=== PATIENT | male | born 1995 | race African-American/Black ===

== ENCOUNTER 2024-08-10 13:00 | Inpatient (IN) | payer OTHER ==
[2024-08-10 13:10] VITALS: BMI 24.9
[2024-08-10] MEDS ORDERED: ACETAMINOPHEN INJECTION 100 ML ONE (14:17)
[2024-08-10 14:36] LABS: BASO % 0.4 % (0-2.0); EOS % 0.9 % (0-4.5); HEMATOCRIT 41.2 % (35.4-49); HEMOGLOBIN 13.9 GM/dL (11.7-16.9); LYMPH % 33.4 % (8-40); MCH 31.2 pg (25.7-33.7); MCHC 33.9 g/dl (32.0-35.9); MEAN CELL VOLUME 92.3 fl (80-96); NEUT % 54.3 % (42.8-82.8); PLATELET COUNT 218 10^3/uL (134-434); RBC 4.46 M/mm3 (4.00-5.60); RDW 14.6 % (11.9-15.9); URINE APPEARANCE CLEAR; URINE BILIRUBIN NEGATIVE (NEGATIVE); URINE COLOR YELLOW; URINE GLUCOSE (UA) NEGATIVE (NEGATIVE); URINE KETONE NEGATIVE (NEGATIVE); URINE LEUK ESTERASE NEGATIVE (NEGATIVE); URINE NITRITE NEGATIVE (NEGATIVE); URINE PROTEIN NEGATIVE (NEGATIVE); URINE UROBILINOGEN 0.2 mg/dL (0.2-1.0); WHITE BLOOD COUNT 4.8 K/mm3 (4.0-10.0)
[2024-08-10] MEDS: ACETAMINOPHEN 1000 MG/100 ML BAG IVPB ONE (14:36)
[2024-08-10 14:43] LABS: INR 1.09 (0.83-1.09); PROTHROMBIN TIME (PATIENT) 11.9 SEC (9.7-13.0)
[2024-08-10 14:46] LABS: ACTIVATED PTT 28.7 SECONDS (25.2-36.5)
[2024-08-10 15:05] LABS: POTASSIUM 4.6 mmol/L (3.5-5.1)
[2024-08-10 15:08] LABS: ALBUMIN 3.9 g/dl (3.4-5.0); BLOOD UREA NITROGEN 14.8 mg/dL (7-18); CALCIUM 9.4 mg/dL (8.5-10.1)
[2024-08-10 15:11] LABS: CREATININE 1.1 mg/dL (0.55-1.3)
[2024-08-10 15:13] LABS: TOT PROT 7.5 g/dl (6.4-8.2)
[2024-08-10 15:57] LABS: HIV INTERPRETATION NEGATIVE (NEGATIVE)
[2024-08-10] MEDS ORDERED: PIPERACILLIN/TAZOB 3.375 GM 3.375 GM/50 ML BAG IVPB ONE (17:52)
[2024-08-10] MEDS: PIPERACILLIN/TAZOB 3.375 GM 3.375 GM in DEXTROSE 5%-WATER - 50 ML IVPB ONE (17:55)
[2024-08-10] MEDS ORDERED: ACETAMINOPHEN 1000 MG/100 ML BAG IVPB PRN ×2 (18:11→20:42)
[2024-08-10] MEDS ORDERED: ONDANSETRON 4 MG/2 ML VIAL IVPUSH PRN ×2 (18:11→20:42)
[2024-08-10] MEDS ORDERED: CEFTRIAXONE 1 G/50 ML PREMIX 50 ML IVPB ONE (18:25)
[2024-08-10] MEDS ORDERED: BUPIVACAINE HCL/PF 0.25% (2.5MG/ML) 10 ML VIAL ONE (18:26)
[2024-08-10] MEDS: LACTATED RINGERS SOLUTION 1,000 ML IV SCH ×3 (18:36→22:49)
[2024-08-10] MEDS: CEFTRIAXONE 1 GM in DEXTROSE 5%-WATER - 50 ML IVPB SCH (18:36)
[2024-08-10] MEDS ORDERED: oxyCODONE HCL 5 MG TABLET PO PRN (18:40)
[2024-08-10] MEDS ORDERED: CEFTRIAXONE 1 G/50 ML PREMIX 50 ML IVPB SCH (18:50)
[2024-08-10] MEDS ORDERED: PROPOFOL 20 ML ONE (18:56)
[2024-08-10] MEDS ORDERED: ROCURONIUM BROMIDE 50 MG/5 ML SYRINGE ONE (18:56)
[2024-08-10] MEDS ORDERED: MIDAZOLAM HCL 2 MG/2 ML SINGLE DOSE VIAL ONE (18:56)
[2024-08-10] MEDS ORDERED: DEXAMETHASONE SOD PHOSPHATE 4 MG/1 ML VIAL ONE (19:19)
[2024-08-10] MEDS ORDERED: KETOROLAC TROMETHAMINE 30 MG/1 ML VIAL ONE (19:19)
[2024-08-10] MEDS ORDERED: ONDANSETRON 4 MG/2 ML VIAL ONE (19:19)
[2024-08-10] MEDS ORDERED: SUGAMMADEX SODIUM 200 MG/2 ML VIAL ONE (19:26)
[2024-08-10] MEDS: BUPIVACAINE HCL/PF 2.5 MG/ML - 30 ML VIAL IJ ONE (19:36)
[2024-08-10] MEDS: oxyCODONE HCL 5 MG TABLET PO PRN (22:30)
[2024-08-11 06:20] VITALS: RESP 18
[2024-08-11 08:55] LABS: BASO % 0.1 % (0-2.0); HEMOGLOBIN 13.1 GM/dL (11.7-16.9); LYMPH % 12.5 % (8-40); MCH 30.9 pg (25.7-33.7); MCHC 33.5 g/dl (32.0-35.9); MEAN CELL VOLUME 92.2 fl (80-96); MEAN PLT VOLUME 8.5 fl (7.5-11.1); NEUT % 78.4 % (42.8-82.8); PLATELET COUNT 219 10^3/uL (134-434); RBC 4.23 M/mm3 (4.00-5.60); RDW 14.3 % (11.9-15.9)
[2024-08-11 08:58] LABS: POTASSIUM 4.6 mmol/L (3.5-5.1)
[2024-08-11 09:05] LABS: CALCIUM 9.1 mg/dL (8.5-10.1)
[2024-08-11 09:06] LABS: ALBUMIN 3.3 g/dl (3.4-5.0); BLOOD UREA NITROGEN 12.7 mg/dL (7-18); MAGNESIUM 2.1 mg/dL (1.8-2.4)
[2024-08-11 09:09] LABS: CREATININE 1.1 mg/dL (0.55-1.3); PHOSPHOROUS 5.1 mg/dL (2.5-4.9)
[2024-08-11 09:10] LABS: BILIRUBIN,TOTAL 1.2 mg/dL (0.2-1); TOT PROT 6.6 g/dl (6.4-8.2)
[2024-08-11] MEDS ORDERED: ACETAMINOPHEN 325 MG TABLET (FP) PO PRN (14:38)
[2024-08-11 15:03] VITALS: BP 121/71; PULSE 62; TEMP 98.2
== END 2024-08-11 15:39 | disposition home or self-care (01) | DRG 399 ==
LOC: JER 13:00 → JERBED 17:52 → J8W 22:07
PROVIDERS: ADMIT Internal Medicine; ATTEND Internal Medicine
PROC: 0DTJ4ZZ Resection of Appendix, Percutaneous Endoscopic Approach (ICD-10-PCS; principal; 2024-08-10 19:00)
DX: K35.890 Other acute appendicitis without perforation or gangrene (principal)
CPT/HCPCS: 0241U-QW; 36415; 74177-TC; 80053; 81003; 83690; 83735; 84100; 85025; 85610; 85730; 86803; 86850; 86900; 86901; 87086; 87389; 88304-TC; 93005; 93010; 94760; 99285-25; Q9967